=== PATIENT | male | born 1970 | race Caucasian/White ===

== ENCOUNTER 2023-04-03 13:35 | Emergency (ER) | payer SELFPAY ==
[2023-04-03 13:51] VITALS: BP 166/95; PULSE 80; RESP 16; TEMP 36.4; O2SAT 96; BMI 29.8
--- NOTE | 2023-04-03 14:19 | CTR_ITS ---
PROCEDURE INFORMATION: Exam: CT Head Without Contrast Exam date and time: 04/03/2023 2:33 PM Age: 52 years old Clinical indication: Altered mental status/memory loss and speech disturbance; Slurred speech; Additional info: Intermittent confusion, slurred speech, gait problems TECHNIQUE: Imaging protocol: Computed tomography of the head without contrast. Radiation optimization: All CT scans at this facility use at least one of these dose optimization techniques: automated exposure control; mA and/or kV adjustment per patient size (includes targeted exams where dose is matched to clinical indication); or iterative reconstruction. REPORTING DATA: Count of CT and Cardiac NM exams in prior 12 months: This patient has received 0 known CTs and 0 known cardiac nuclear medicine studies in the 12 months prior to the current study. COMPARISON: No relevant prior studies available. RADIATION DOSE METRICS: Total DLP (mGy-cm): 1293.36 FINDINGS: Brain: Normal. No hemorrhage. Preserved bear-white matter differentiation. Unremarkable white matter. No mass effect. Cerebral ventricles: No ventriculomegaly. Paranasal sinuses: Visualized sinuses are unremarkable. No fluid levels. Mastoid air cells: Visualized mastoid air cells are well aerated. Bones/joints: Unremarkable. No acute fracture. Soft tissues: Unremarkable. CT/CT head wo con* [id number] IMPRESSION: No acute intracranial abnormality.
--- NOTE | 2023-04-03 14:20 | ED_ITS ---
HPI - General Adult General: Chief complaint: Dental/Oral Stated complaint: slurred speech, weakness, confusion Time Seen by Provider: 04/03/23 14:02 Source: patient Mode of arrival: ambulatory Limitations: no limitations History of Present Illness: Patient is a 52-year-old male who presents to ED today along with his sister for concerns of slurred speech, confusion, trouble ambulating over the past 3 weeks. Symptoms have been intermittent. Upon arrival to the ED both patient and sister agree that he currently is asymptomatic. They mention that a week or so ago he had a tooth ache with some facial swelling x 1 day that subsided on its own and is concerned that he could be septic. Patient is not running fevers. He has no headache. No visual changes. Denies neck pain/stiffness. Patient denies ever having any numbness, tingling, loss of sensation to his extremities. They have never noticed any facial drooping. Patient states he never goes to the doctor. He states that years ago he was diagnosed with diabetes never followed up for this and does not take medications for this. States he has also been diagnosed with CEJA and hypertension. Onset (ago): week(s) Relieving factors: none Exacerbating factors: none Associated symptoms: Reports confusion (intermittent-none currently); Deny chest pain, dyspnea, headache(s), malaise, rash or vomiting Treatments prior to arrival: none Review of Systems Const: Denies: fever(s), chills, body aches, fatigue or malaise Eyes: Denies: change in vision, blurry vision, photophobia, floaters or seeing flashes ENMT: Denies: dental pain, ear or mastoid pain, nasal discharge, nasal congestion or sinus pain Card: Denies: chest pain Resp: Denies: dyspnea GI: Denies: abdominal pain, vomiting or diarrhea : Denies: flank pain, difficulty urinating, urinary frequency, urinary urgency or hematuria Musc: Denies: neck pain, back pain, extremity pain or joint pain Skin/Breast: Denies: rash Neuro: Reports: difficulty walking (intermittent-none currently), confusion (intermittent-none currently) and Slurred speech present (intermittent-none currently); Denies: headache(s), numbness in extremities, weakness in extremities, sensory changes, frequent falls, dizziness, behavioral changes, seizure-like activity, involuntary movements or restless legs Physical Exam Const: COMMON NORMALS: no acute distress, average body habitus, patient oriented x3, no limitations, healthy appearing, alert and well nourished GENERAL APPEARANCE: cooperative ORIENTATION/CONSCIOUSNESS: Yes awake, Yes oriented to person, Yes oriented to place and Yes oriented to time HENMT: COMMON NORMALS: normocephalic and atraumatic HEAD & SCALP: normal to inspection, normocephalic and atraumatic FACE & SINUS: normal facial exam and sinuses nontender; no erythema and no edema MOUTH: Normal oral and palatal mucosa present, lip normal and tongue normal; no audible dysphonia and no drooling TEETH & GINGIVA: Yes poor dentition and Yes other (no abscess noted) THROAT: posterior oropharynx normal Eye: COMMON NORMALS: Equal, round and reactive pupils present and EOMs intact bilaterally GENERAL EYE: appearance normal, both eyes and all related structures and normal light reflex PUPIL: Yes Equal, round and reactive pupils present DIRECT OPHTHALMOSCOPY: Yes normal light reflex Neck/C-Spine: COMMON NORMALS: full ROM, no lymphadenopathy, supple and no meningeal signs Resp: COMMON NORMALS: normal respiratory effort and clear to auscultation bilaterally AUSCULTATION: clear to auscultation bilaterally Cardio: COMMON NORMALS: regular rate and regular rhythm RATE: regular rate RHYTHM: regular rhythm GI: COMMON NORMALS: Normal to inspection, nondistended, normoactive bowel sounds present, Soft to palpation, non-tender, No hepatosplenomegaly present and no masses PALPATION: Yes Soft to palpation and Yes No hepatosplenomegaly present : COMMON NORMALS: Yes no CVA tenderness BLADDER/KIDNEY EXAM: Yes no CVA tenderness Back/Pelvis: COMMON NORMALS: no CVA tenderness and thoracic and lumbar spine normal to inspection Extremity: COMMON NORMALS: normal to inspection GENERAL: Yes normal exam except as noted Neuro: MATT COMA SCALE: document GCS findings Matt coma scale eye opening: Spontaneous [place] coma scale verbal response: Orientated [place] coma scale motor response: Obey commands Wh[place] coma scale total score: 15 COMMON NORMALS: patient oriented x3, CN's II-XII intact bilaterally, moves all extremities, no focal motor deficits, no sensory deficits noted and gait normal SENSORIUM/ORIENTATION: Yes alert, Yes oriented to person, Yes oriented to place and Yes oriented to time MENINGEAL SIGNS: Yes no meningeal signs COORDINATION/BALANCE: [id number] test normal SPEECH: speech normal GAIT: Yes Normal gait present MOTOR EXAM: 5/5 motor strength present throughout COORDINATION: [id number] test normal Skin: COMMON NORMALS: no rashes or lesions noted GENERAL SKIN EXAM: no rashes or lesions noted Course Vital Signs: Vital signs: Vital Signs Temperature 97.6 F 04/03/23 13:51 Pulse Rate 80 04/03/23 13:51 Respiratory Rate 16 04/03/23 13:51 Blood Pressure 166/95 04/03/23 13:51 Pulse Oximetry 96 04/03/23 13:51 Oxygen Delivery Me thod Room Air 04/03/23 13:51 MDM - General Adult Medical Decision Making Patient here with complaints of intermittent confusion, slurred speech, gait abnormalities over the past 3 weeks. Upon presentation to the ED he admittedly is completely asymptomatic. He has a completely normal neurologic exam/stroke score of 0. Blood work is unremarkable. UA showing microscopic hematuria. CT head is negative. CXR is unremarkable. At this time I will have case management set him up with primary care follow-up appointment. Return ED precautions given. Lab Data 04/03/23 14:58 04/03/23 14:[address] 04/03/23 14:19 IMPRESSION: No acute intracranial abnormality. Chest X-Ray 04/03/23 14:20 IMPRESSION: Unremarkable chest radiograph. Laboratory Results WBC 7.6 10^3/uL (4.0-10.0) 04/03/23 14:58 RBC 5.19 10^6/uL (4.1-5.3) 04/03/23 14:58 Hgb 15.5 g/dL (11.7-16.6) 04/03/23 14:58 Hct 47.1 % (42.0-52.0) 04/03/23 14:58 MCV 90.8 fl (80-94) 04/03/23 14:58 MCH 29.9 pg (28.0-34.0) 04/03/23 14:58 MCHC 32.9 g/dL (30.0-36.0) 04/03/23 14:58 RDW 13.7 % (12.1-15.1) 04/03/23 14:58 Plt Count 191 10^3/cmm (130-400) 04/03/23 14:58 MPV 9.1 fL (7.4-10.4) 04/03/23 14:58 Neut % (Auto) 50.2 % 04/03/23 14:58 Lymph % (Auto) 35.1 % 04/03/23 14:58 [place] % (Auto) 8.5 % 04/03/23 14:58 Eos % (Auto) 4.7 % 04/03/23 14:58 Baso % (Auto) 1.2 % 04/03/23 14:58 Neut # (Auto) 3.82 10^3/uL (1.8-7.7) 04/03/23 14:58 Lymph # (Auto) 2.7 10^3/uL (0.8-4.8) 04/03/23 14:58 [place] # (Auto) 0.7 10^3/uL (0.2-0.9) 04/03/23 14:58 Eos # (Auto) 0.4 10^3/uL (0.0-0.8) 04/03/23 14:58 Baso # (Auto) 0.1 10^3/uL (0.0-0.1) 04/03/23 14:58 Nucleated RBC % (auto) 0 % 04/03/23 14:58 Nucleated RBCs # 0.0 /100WBC 04/03/23 14:58 Sodium 139 mmol/L (136-145) 04/03/23 14:58 Potassium 4.1 mmol/L (3.5-5.1) 04/03/23 14:58 Chloride 100 mmol/L (98-107) 04/03/23 14:58 Carbon Dioxide 26 mmol/L (22-29) 04/03/23 14:58 Anion Gap 17.1 (5-19) 04/03/23 14:58 BUN 3 mg/dL (6-20) L 04/03/23 14:58 Creatinine 1.0 mg/dL (0.7-1.2) 04/03/23 14:58 GFR Calculation 78.8 mL/min (90-130) L 04/03/23 14:58 Glucose 86 mg/dL (65-115) 04/03/23 14:58 Calculated Osmolality 284 mOsm/kg (285-295) L 04/03/23 14:58 Calcium 9.2 mg/dL (8.5-10.5) 04/03/23 14:58 Total Bilirubin 0.2 mg/dL (0.15-1.2) 04/03/23 14:58 AST 21 U/L (0-40) 04/03/23 14:58 ALT 35 U/L (0-41) 04/03/23 14:58 Alkaline Phosphatase 103 U/L (40-130) 04/03/23 14:58 Total Protein 6.8 g/dL (6.6-8.7) 04/03/23 14:58 Albumin 4.2 g/dL (3.5-5.2) 04/03/23 14:58 Globulin 2.6 g/dL (1.3-4.6) 04/03/23 14:58 Urine Color Straw (Yellow) 04/03/23 14:31 Urine Appearance Clear (CLEAR) 04/03/23 14:31 Urine pH 6 (5-7) 04/03/23 14:31 Ur Specific [place] 1.005 (1.005-1.030) 04/03/23 14:31 Urine Protein Neg (Negative) 04/03/23 14:31 Urine Glucose (UA) Norm (Normal) 04/03/23 14:31 Urine Ketones Negative (Negative) 04/03/23 14:31 Urine Blood 2+ (Negative) H 04/03/23 14:31 Urine Nitrate Negative (Negative) 04/03/23 14:31 Urine Bilirubin Neg (Negative) 04/03/23 14:31 Urine Urobilinogen Norm mg/dL (Negative) 04/03/23 14:31 Ur Leukocyte Esterase Negative (Negative) 04/03/23 14:31 Urine RBC 0-4 /hpf (0-2) H 04/03/23 14:31 Urine WBC None /hpf (0-5) 04/03/23 14:31 Ur Squamous Epith Cells None /hpf (0-5) 04/03/23 14:31 Amorphous Sediment Not Reportable 04/03/23 14:31 Urine Bacteria Trace /hpf (NONE) 04/03/23 14:31 Discharge Plan Discharge Patient Disposition: Home Clinical Impression: Intermittent confusion, Asymptomatic microscopic hematuria Condition: Stable Prescriptions: No Action clindamycin HCl 150 mg capsule 450 mg PO TID 14 Days Qty: 126 0RF hydrocodone-acetaminophen 5-325 mg tablet 0.5 tab PO BID PRN (Reason: pain) 5 Days Qty: 5 0RF Discharge Orders: Discharge ED (Routine); Ordered 04/03/23 Ordered By: Ashley Quintero Referrals: Abhi Bean MD [Primary Care Provider] - Activity Restrictions/Additional Instructions: As we discussed at this time I do not see any obvious reason to explain your intermittent confusion, slurred speech, gait abnormalities. I would like you to follow-up with a primary care provider for this. I have placed a referral for case management to get you set up with an appointment. As we discussed your urine did show microscopic blood. Primary care can also follow-up with you in regards to this as well. Stand Alone Forms: Work/School Release Coding Level of Care Code ED Corporate Administrative Assistant for Nacho Singh
--- NOTE | 2023-04-03 14:20 | XR_ITS ---
WS: [id number] Exam: XR chest 1V portable [id number] Date/Time of Exam: 04/03/2023 2:20 PM Reason For Exam: AMS No priors. Findings: The lungs are clear and fully expanded. Costophrenic angles are sharp. No infiltrates. Bronchovascula r relief appears normal. Cardiac silhouette is unremarkable. Bony elements are intact. XR/XR chest 1V portable [id number] IMPRESSION: Unremarkable chest radiograph.
[2023-04-03 15:01] LABS: Add Urine Microscopic? YES; Bilirubin Urine Neg (Negative); Blood Urine 2+ (Negative); Glucose Urine UA Norm (Normal); Ketones Urine Negative (Negative); Leukocyte Esterase Urine Negative (Negative); Nitrate Urine Negative (Negative); Protein Urine Neg (Negative); Specific Gravity, Urine 1.005 (1.005-1.030); Urine Appearance Clear (CLEAR); Urine Color Straw (Yellow); Urobilinogen Urine Norm (Negative); pH Urine 6 (5-7)
[2023-04-03 15:02] LABS: Add Urine Culture? No; Bacteria Urine TRACE /hpf; RBC Urine 0-4 /hpf (0-2)
[2023-04-03 15:09] LABS: Basophils # 0.1 10^3/uL (0.0-0.1); Basophils % 1.2 %; Eosinophils # 0.4 10^3/uL (0.0-0.8); Eosinophils % 4.7 %; Hematocrit 47.1 % (42.0-52.0); Hemoglobin 15.5 g/dL (11.7-16.6); Lymphocytes # 2.7 10^3/uL (0.8-4.8); Lymphocytes % 35.1 %; Mean Corpuscular HGB Conc 32.9 g/dL (30.0-36.0); Mean Corpuscular Hemoglobin 29.9 pg (28.0-34.0); Mean Corpuscular Volume 90.8 fl (80-94); Mean Platelet Volume 9.1 fL (7.4-10.4); Monocytes # 0.7 10^3/uL (0.2-0.9); Monocytes % 8.5 %; Neutrophils # 3.82 10^3/uL (1.8-7.7); Neutrophils % 50.2 %; Nucleated Red Blood Cells % 0 %; Platelet Count 191 10^3/cmm (130-400); Red Blood Count 5.19 10^6/uL (4.1-5.3); Red Cell Distribution Width 13.7 % (12.1-15.1); White Blood Count 7.6 10^3/uL (4.0-10.0)
[2023-04-03 15:30] LABS: Alanine Aminotransferase 35 U/L (0-41); Albumin Level 4.2 g/dL (3.5-5.2); Alkaline Phosphatase 103 U/L (40-130); Anion Gap 17.1 (5-19); Aspartate Amino Transferase 21 U/L (0-40); Blood Urea Nitrogen 3 mg/dL (6-20); Calcium 9.2 mg/dL (8.5-10.5); Carbon Dioxide 26 mmol/L (22-29); Chloride 100 mmol/L (98-107); Globulin 2.6 g/dL (1.3-4.6); Glomerular Filtration Rate 78.8 mL/min (90-130); Glucose 86 mg/dL (65-115); Osmolality Calculated 284 mOsm/kg (285-295); Potassium 4.1 mmol/L (3.5-5.1); Sodium 139 mmol/L (136-145); Total Bilirubin 0.2 mg/dL (0.15-1.2); Total Protein 6.8 g/dL (6.6-8.7)
--- NOTE | 2023-04-04 09:47 | DCPLANNER ---
passport support manager had message to speak with patient about scheduling a follow up appointment for patient with his primary care physician. passport support manager called patient to confirm if he needed help in scheduling an appointment. passport support manager unable to speak with patient and unable to leave a message.
== END 2023-04-03 16:14 | disposition home or self-care (01) ==
PROVIDERS: Emergency Provider Physician Assistant; PCP Family Medicine
DX: R41.0 Disorientation, unspecified (principal); R31.21 Asymptomatic microscopic hematuria
CPT/HCPCS: 36415; 70450; 71045; 80053; 81001; 85025; 99285

== ENCOUNTER 2024-11-17 08:06 | Emergency (ER) | payer SELFPAY ==
[2024-11-17] VITALS (7 sets, daily range): BP systolic 174–217; BP diastolic 95–108; PULSE 66–75; RESP 13–25; TEMP 36.8; O2SAT 97–100; BMI 30.9
--- NOTE | 2024-11-17 08:21 | ECG_ITS ---
[facility] [place] [facility] Date: 2024-11[facility]17 Pat Name: Jose Richards Department: Room: Gender: Male Expense Analyst: : 1970 Requested By: Ladi Proctor Order Number: [id number] Darin MD: Paola Estrada M.D. Measurements Intervals [place] Rate: 68 P: 15 [place]: 198 QRS: 45 QRSD: 83 T: 44 QT: 383 QTc: 408 Interpretive Statements SINUS RHYTHM No previous ECG available for comparison Electronically Signed On 11-17-2024 12:00:11 METEOROLOGICAL TECHNICIAN by Paola Estrada M.D. [email or web address]
--- NOTE | 2024-11-17 08:21 | CTR_ITS ---
PROCEDURE INFORMATION: Exam: CT Head Without Contrast Exam date and time: 11/17/2024 8:38 AM Age: 54 years old Clinical indication: Pain; Dizziness; Headache; Vascular; Additional info: Vertigo TECHNIQUE: Imaging protocol: Computed tomography of the head without contrast. Radiation optimization: All CT scans at this facility use at least one of these dose optimization techniques: automated exposure control; mA and/or kV adjustment per patient size (includes targeted exams where dose is matched to clinical indication); or iterative reconstruction. COMPARISON: CT head wo con* [id number] 04/03/2023 2:33 PM RADIATION DOSE METRICS: Total DLP (mGy-cm): 1296.68 FINDINGS: Brain: There is no midline shift, mass effect, intracranial hemorrhage or large territory ischemic infarct. Cerebral ventricles: No ventriculomegaly. Paranasal sinuses: Visualized sinuses are unremarkable. No fluid levels. Mastoid air cells: Visualized mastoid air cells are well aerated. Orbital cavities: Orbits are unremarkable. Bones: Osseous structures are unremarkable. Soft tissues: Soft tissues are unremarkable. CT/CT head wo con* [id number] IMPRESSION: No acute intracranial finding.
--- NOTE | 2024-11-17 08:22 | ED_ITS ---
HPI - General Adult 2 General: Chief complaint: General Medical Stated complaint: high bp Time Seen by Provider: 11/17/24 08:08 Source: patient Mode of arrival: ambulatory Limitations: no limitations History of Present Illness: 54-year-old male who is seen in urgent c are today for baldev symptoms sent over here for hypertension. He states that over the last 3 to 4 days has been having fatigue and feeling like he has the flu. States has had some nausea and vomiting he had a mild headache and chest pain has been going on over the last week as well. He does have a history of high blood pressure states he has not seen a doctor in years used to be on meds but is not currently Associated symptoms: Reports chest pain, headache(s) and vomiting; Deny dyspnea or rash Related Data Previous Rx's ?Medication ?Instructions ?Recorded amlodipine 10 mg tablet (Norvasc) 10 mg PO DAILY #60 t abs 11/17/24 Allergies Allergy/AdvReac Type Severity Reaction Status Date / Time No Known Allergies Allergy Verified 04/03/23 13:51 Review of Systems 2 Const: Reports: chills and fatigue; Denies: fever(s), body aches or change in appetite Eyes: Denies: blurry vision or eye discomfort ENMT: Denies: throat pain or dental pain Card: Reports: chest pain Resp: Denies: dyspnea GI: Reports: vomiting; Denies: abdominal pain or diarrhea Musc: Denies: neck pain or back pain Skin/Breast: Denies: rash Neuro: Reports: headache(s) All/Imm: Denies: urticaria Physical Exam 2 Const: COMMON NORMALS: no acute distress, patient oriented x3 and healthy appearing HENMT: COMMON NORMALS: normocephalic and atraumatic HEAD & SCALP: n ormocephalic and atraumatic Eye: COMMON NORMALS: Equal, round and reactive pupils present and EOMs intact bilaterally PUPIL: Yes Equal, round and reactive pupils present Neck/C-Spine: COMMON NORMALS: full ROM and supple Chest: COMMONS NORMALS: normal inspection of the chest and normal palpation of entire chest wall Resp: COMMON NORMALS: normal respiratory effort, No retractions, No use of accessory muscles and clear to auscultation bilaterally AUSCULTATION: clear to auscultation bilaterally Cardio: COMMON NORMALS: regular rate, regular rhythm and No murmurs present (Cardio) RATE: regular rate RHYTHM: regular rhythm GI: COMMON NORMALS: Normal to inspection, nondistended, normoactive bowel sounds present, Soft to palpation, non-tender and no masses PALPATION: Yes Soft to palpation Extremity: COMMON NORMALS: normal to inspection and full ROM Neuro: COMMON NORMALS: patient oriented x3, moves all extremities and no focal motor deficits Psych: COMMON NORMALS: mental status grossly normal, Normal thought process present and cooperative THOUGHT PROCESS: Normal thought process present Skin: COMMON NORMALS: no rashes or lesions noted and no wounds GENERAL SKIN EXAM: no rashes or lesions noted Course 2 Vital Signs: Vital signs: Vital Signs Temperature 98.2 F 11/17/24 08:11 Pulse Rate 75 11/17/24 08:11 Respiratory Rate 16 11/17/24 08:11 Blood Pressure 216/102 11/17/24 08:11 Pulse Oximetry 100 11/17/24 08:11 [facility] - General Adult Medical Decision Making Patient presents here with hypertension blood work here is all normal he had a mild headache his CT of the head is normal troponin EKG is normal no signs of ACS we will start him on Norvasc he is to follow-up with PCP return if worsening. Medical Records I reviewed the patient's medical records. Lab Data I reviewed the patient's lab results. 11/17/24 08:24 11/17/24 08:[address] 11/17/24 08:21 IMPRESSION: No acute intracranial finding. Chest X-Ray 11/17/24 08:52 IMPRESSION: No acute pulmonary finding. Laboratory Results WBC 6.76 10^3/uL (3.29-11.43) 11/17/24 08:24 RBC 4.92 10^6/uL (3.85-5.65) 11/17/24 08:24 Hgb 14.50 g/dL (11.27-16.99) 11/17/24 08:24 Hct 43.0 % (37-53) 11/17/24 08:24 MCV 87.4 fl (82-101) 11/17/24 08:24 MCH 29.5 pg (27-33) 11/17/24 08:24 MCHC 33.7 g/dL (30-55) 11/17/24 08:24 RDW 13.2 % (12.1-15.1) 11/17/24 08:24 Plt Count 250 10^3/cmm (157-399) 11/17/24 08:24 MPV 9.0 fL (7.4-10.4) 11/17/24 08:24 Neut % (Auto) 68.5 % 11/17/24 08:24 Lymph % (Auto) 22.5 % 11/17/24 08:24 [place] % (Auto) 7.1 % 11/17/24 08:24 Eos % (Auto) 0.7 % 11/17/24 08:24 Baso % (Auto) 0.9 % 11/17/24 08:24 Neut # (Auto) 4.63 10^3/uL (1.8-7.7) 11/17/24 08:24 Lymph # (Auto) 1.5 10^3/uL (0.8-4.8) 11/17/24 08:24 [place] # (Auto) 0.5 10^3/uL (0.2-0.9) 11/17/24 08:24 Eos # (Auto) 0.1 10^3/uL (0.0-0.8) 11/17/24 08:24 Baso # (Auto) 0.1 10^3/uL (0.0-0.1) 11/17/24 08:24 Nucleated RBC % (auto) 0 % 11/17/24 08:24 Nucleated RBCs # 0.0 /100WBC 11/17/24 08:24 Sodium 139 mmol/L (136-145) 11/17/24 08:24 Potassium 4.1 mmol/L (3.5-5.1) 11/17/24 08:24 Chloride 105 mmol/L (98-107) 11/17/24 08:24 Carbon Dioxide 22 mmol/L (22-29) 11/17/24 08:24 Anion Gap 16.1 (5-19) 11/17/24 08:24 BUN 8 mg/dL (6-20) 11/17/24 08:24 Creatinine 1.0 mg/dL (0.7-1.2) 11/17/24 08:24 GFR Calculation 78.2 mL/min (90-130) L 11/17/24 08:24 Glucose 163 mg/dL (65-115) H 11/17/24 08:24 Calculated Osmolality 290 mOsm/kg (285-295) 11/17/24 08:24 Calcium 9.0 mg/dL (8.5-10.5) 11/17/24 08:24 Total Bilirubin 0.2 mg/dL (0.15-1.2) 11/17/24 08:24 AST 23 U/L (0-40) 11/17/24 08:24 ALT 37 U/L (0-41) 11/17/24 08:24 Alkaline Phosphatase 83 U/L (40-130) 11/17/24 08:24 Troponin T Baseline 14 ng/L (0-15) 11/17/24 08:24 Total Protein 7.0 g/dL (6.6-8.7) 11/17/24 08:24 Albumin 4.4 g/dL (3.5-5.2) 11/17/24 08:24 Globulin 2.6 g/dL (1.3-4.6) 11/17/24 08:24 Influenza A (PCR) Negative (Negative) 11/17/24 08:35 Influenza Type B (PCR) Negative (Negative) 11/17/24 08:35 RSV (PCR) Negative (Negative) 11/17/24 08:35 SARS-CoV-2 (PCR) Negative (Negative) 11/17/24 08:35 All radiology interpretation(s) finalized by discharge EKG Data EKG 1: I personally reviewed and interpreted this EKG as follows: EKG interpretation date: 11/17/24 EKG interpretation time: 08:47 Interpretation: nsr hr [address] elevation qrs 83 qtc 400 Computer generated interpretation: Head CT 11/17/24 08:21 IMPRESSION: No acute intracranial finding. Chest X-Ray 11/17/24 08:52 IMPRESSION: No acute pulmonary finding. Discharge Plan Discharge Patient Disposition: Home Clinical Impression: Hypertension Condition: Stable Prescriptions: New amlodipine [Norvasc] 10 mg tablet 10 mg PO DAILY Qty: 60 0RF Discharge Orders: Discharge ED (Routine); Ordered 11/17/24 Ordered By: Ladi Proctor Referrals: Abhi Bean MD [Primary Care Provider] - Discharge Diet: Advance as tolerated Discharge Activity: Resume usual activity Patient Instructions: Hypertension (ED) Stand Alone Forms: Work/School Release Print Language: [place] Island[place] Coding Level of Care Code ED Labor Law Professor for Nacho Singh
[2024-11-17] MEDS: hyDRALAzine 20 mg/mL INJ 1 mL 10 MG IVP ×2 (08:30→09:21)
[2024-11-17 08:31] LABS: Basophils # 0.1 10^3/uL (0.0-0.1); Basophils % 0.9 %; Eosinophils # 0.1 10^3/uL (0.0-0.8); Eosinophils % 0.7 %; Lymphocytes # 1.5 10^3/uL (0.8-4.8); Lymphocytes % 22.5 %; Mean Corpuscular HGB Conc 33.7 g/dL (30-55); Mean Corpuscular Hemoglobin 29.5 pg (27-33); Mean Corpuscular Volume 87.4 fl (82-101); Monocytes # 0.5 10^3/uL (0.2-0.9); Monocytes % 7.1 %; Neutrophils # 4.63 10^3/uL (1.8-7.7); Neutrophils % 68.5 %; Nucleated Red Blood Cells % 0 %; Platelet Count 250 10^3/cmm (157-399); Red Blood Count 4.92 10^6/uL (3.85-5.65); Red Cell Distribution Width 13.2 % (12.1-15.1); White Blood Count 6.76 10^3/uL (3.29-11.43)
[2024-11-17] MEDS: ketorolac 30 mg/mL INJ 15 MG IVP (08:32)
[2024-11-17 08:47] LABS: Troponin(5th) Baseline 14 ng/L (0-15)
[2024-11-17 08:48] LABS: Alanine Aminotransferase 37 U/L (0-41); Albumin Level 4.4 g/dL (3.5-5.2); Alkaline Phosphatase 83 U/L (40-130); Anion Gap 16.1 (5-19); Aspartate Amino Transferase 23 U/L (0-40); Blood Urea Nitrogen 8 mg/dL (6-20); Carbon Dioxide 22 mmol/L (22-29); Chloride 105 mmol/L (98-107); Creatinine Clr Calc Pharmacy 106.2459; Globulin 2.6 g/dL (1.3-4.6); Glomerular Filtration Rate 78.2 mL/min (90-130); Glucose 163 mg/dL (65-115); Osmolality Calculated 290 mOsm/kg (285-295); Potassium 4.1 mmol/L (3.5-5.1); Sodium 139 mmol/L (136-145); Total Bilirubin 0.2 mg/dL (0.15-1.2)
--- NOTE | 2024-11-17 08:52 | XRR_ITS ---
PROCEDURE INFORMATION: Exam: XR Chest Exam date and time: 11/17/2024 9:05 AM Age: 54 years old Clinical indication: Pain; Chest pressure; Additional info: Cp TECHNIQUE: Imaging protocol: Radiologic exam of the chest. Views: 1 view. COMPARISON: CR XR chest 1V portable [id number] 04/03/2023 2:36 PM FINDINGS: Lungs: The pulmonary vessels are within normal limits. The lungs are clear. Pleural spaces: No pneumothorax. Heart/Mediastinum: The cardiomediastinal silhouette is within normal limits. Bones/joints: Osseous structure is unremarkable. XR/XR chest 1V portable [id number] IMPRESSION: No acute pulmonary finding.
[2024-11-17 09:28] LABS: Influenza A NEGATIVE (Negative); Influenza B NEGATIVE (Negative); Respiratory Syncytial Virus Ce NEGATIVE (Negative); SARS-CoV-2 PCR NEGATIVE (Negative)
== END 2024-11-17 09:50 | disposition home or self-care (01) ==
PROVIDERS: Emergency Provider Emergency Medicine; PCP Family Medicine
DX: I10 Essential (primary) hypertension (principal); Z11.52 Encounter for screening for COVID-19
CPT/HCPCS: 70450; 71045; 80053; 84484; 85025; 87637; 93005; 96374; 96375; 96376; 99285; J0360; J1885